=== PATIENT | female | born 1945 | race Caucasian/White ===

== ENCOUNTER 2017-10-17 09:36 | Inpatient (IN) | payer MEDICARE ==
[2017-10-17] VITALS (13 sets, daily range): BP systolic 119–171; BP diastolic 42–87; BMI 30.1
[~2017-10-17] VITALS: Ht 165.1 cm; Wt 85.6 kg
[2017-10-17] MEDS ORDERED: KLONOPIN0.5 MG PO (09:39)
[2017-10-17] MEDS ORDERED: LOSARTAN POTASS25 MG PO (09:39)
[2017-10-17 10:04] LABS: BASOPHILS 0.1 % (0-2); EOSINOPHILS 0.7 % (0-7); HEMATOCRIT 33.5 % (36.0-48.0); HEMOGLOBIN 10.9 g/dL (12-16); IMMATURE GRANULOCYTES 0.1 % (0-5); LYMPHOCYTES 21.8 % (15-50); MCH 30.5 pg (26.0-34.0); MCHC 32.5 g/dL (31.0-37.0); MCV 93.8 fL (80.0-100.0); MEAN PLATELET VOLUME 12.6 fL (7.4-10.4); MONOCYTES 6.3 % (2-11); PLATELET COUNT 174 10x3/uL (130-400); RBC 3.57 10x6/uL (4.00-5.40); RDW 12.6 % (11.5-14.5); WBC 8.5 10x3/uL (4.8-10.8)
[2017-10-17 10:38] LABS: ALBUMIN 3.4 g/dL (3.4-5.0); ALKALINE PHOSPHATASE 63 U/L (46-116); ALT (SGPT) 24 U/L (10-68); BILIRUBIN - TOTAL 0.24 mg/dL (0.2-1.3); CALC OSMOLALITY 295 mosm/kg (275-300); CALCIUM 9.1 mg/dL (8.5-10.1); CARBON DIOXIDE 29.4 mmol/L (21.0-32.0); CHLORIDE - SERUM 109 mmol/L (98-107); CREATININE - SERUM 0.7 mg/dL (0.6-1.3); GLUCOSE 132 mg/dL (74-106); POTASSIUM - SERUM 4.2 mmol/L (3.5-5.1); PROTEIN - SERUM 6.2 g/dL (6.4-8.2); SODIUM 142 mmol/L (136-145); UREA NITROGEN 43 mg/dL (7-18); eGFR NON AFRICAN AMERICAN 87 mL/min (90-120)
[2017-10-17 10:46] LABS: PRO BNP 28 pg/mL (0-125); TROPONIN-I < 0.017 ng/mL (0.000-0.060)
[2017-10-17 11:43] LABS: APPEARANCE CLEAR (CLEAR); BACTERIA MODERATE /hpf (NONE SEEN); BILIRUBIN NEGATIVE (NEGATIVE); COLOR YELLOW (YELLOW); EPITHELIAL CELLS 0-5 /hpf (0-5); GLUCOSE NEGATIVE (NEGATIVE); KETONE NEGATIVE (NEGATIVE); MUCUS <1+ /lpf (NONE SEEN); NITRITE NEGATIVE (NEGATIVE); PROTEIN NEGATIVE (NEGATIVE); SPECIFIC GRAVITY 1.015 (1.005-1.020); UROBILINOGEN NORMAL (NORMAL)
[2017-10-17 17:00] LABS: % SATURATION 29 % (15-55); IRON 80 ug/dl (35-150); TOTAL IRON BIND CAPACITY 269 ug/dl (260-445); UNSAT IRON BIND CAPACITY 189 ug/dl (150-375)
[2017-10-17 17:12] LABS: FERRITIN 65 ng/mL (3-244); LDH 154 U/L (81-234)
[2017-10-17 17:56] LABS: BASOPHILS 0.4 % (0-2); EOSINOPHILS 0.6 % (0-7); HEMATOCRIT 29.6 % (36.0-48.0); HEMOGLOBIN 9.5 g/dL (12-16); IMMATURE GRANULOCYTES 0.1 % (0-5); LYMPHOCYTES 30.8 % (15-50); MCHC 32.1 g/dL (31.0-37.0); MCV 93.4 fL (80.0-100.0); MEAN PLATELET VOLUME 13.5 fL (7.4-10.4); MONOCYTES 6.9 % (2-11); NEUTROPHILS 61.2 % (40-80); PLATELET COUNT 162 10x3/uL (130-400); RBC 3.17 10x6/uL (4.00-5.40); RDW 12.7 % (11.5-14.5); WBC 8.4 10x3/uL (4.8-10.8)
[2017-10-18] VITALS (20 sets, daily range): BP systolic 103–164; BP diastolic 39–89; Ht 165.1 cm; Wt 85.6 kg
[2017-10-18 04:27] LABS: BASOPHILS 0.3 % (0-2); EOSINOPHILS 2.2 % (0-7); HEMATOCRIT 29.1 % (36.0-48.0); HEMOGLOBIN 9.6 g/dL (12-16); IMMATURE GRANULOCYTES 0.1 % (0-5); LYMPHOCYTES 41.5 % (15-50); MCV 93.9 fL (80.0-100.0); MEAN PLATELET VOLUME 13.6 fL (7.4-10.4); MONOCYTES 6.9 % (2-11); PLATELET COUNT 164 10x3/uL (130-400); RDW 12.7 % (11.5-14.5); WBC 7.4 10x3/uL (4.8-10.8)
[2017-10-18 04:59] LABS: CALC OSMOLALITY 288 mosm/kg (275-300); CALCIUM 8.4 mg/dL (8.5-10.1); CARBON DIOXIDE 28.5 mmol/L (21.0-32.0); CHLORIDE - SERUM 112 mmol/L (98-107); CREATININE - SERUM 0.6 mg/dL (0.6-1.3); GLUCOSE 93 mg/dL (74-106); POTASSIUM - SERUM 3.7 mmol/L (3.5-5.1); SODIUM 144 mmol/L (136-145); eGFR NON AFRICAN AMERICAN > 90 mL/min (90-120)
[2017-10-18 05:07] LABS: UREA NITROGEN 17 mg/dL (7-18)
[2017-10-19] VITALS (13 sets, daily range): BP systolic 107–152; BP diastolic 42–66
[2017-10-19 04:23] LABS: BASOPHILS 0.3 % (0-2); EOSINOPHILS 3.1 % (0-7); HEMATOCRIT 26.8 % (36.0-48.0); HEMOGLOBIN 8.7 g/dL (12-16); IMMATURE GRANULOCYTES 0.2 % (0-5); LYMPHOCYTES 43.9 % (15-50); MCH 30.4 pg (26.0-34.0); MCHC 32.5 g/dL (31.0-37.0); MCV 93.7 fL (80.0-100.0); MEAN PLATELET VOLUME 13.3 fL (7.4-10.4); MONOCYTES 7.9 % (2-11); NEUTROPHILS 44.6 % (40-80); PLATELET COUNT 162 10x3/uL (130-400); RBC 2.86 10x6/uL (4.00-5.40); RDW 12.8 % (11.5-14.5); WBC 6.2 10x3/uL (4.8-10.8)
[2017-10-19 04:40] LABS: CALC OSMOLALITY 289 mosm/kg (275-300); CALCIUM 8.3 mg/dL (8.5-10.1); CARBON DIOXIDE 28.5 mmol/L (21.0-32.0); CHLORIDE - SERUM 112 mmol/L (98-107); CREATININE - SERUM 0.6 mg/dL (0.6-1.3); GLUCOSE 96 mg/dL (74-106); POTASSIUM - SERUM 3.8 mmol/L (3.5-5.1); SODIUM 146 mmol/L (136-145); eGFR NON AFRICAN AMERICAN > 90 mL/min (90-120)
[2017-10-19 04:41] LABS: UREA NITROGEN 11 mg/dL (7-18)
[2017-10-19 04:44] LABS: HELICOBACTER PYLORI IGG NEGATIVE (NEGATIVE)
[2017-10-20 04:00] VITALS: BP 150/62
[2017-10-20 05:09] LABS: BASOPHILS 0.5 % (0-2); EOSINOPHILS 5.3 % (0-7); HEMATOCRIT 28.1 % (36.0-48.0); HEMOGLOBIN 9.2 g/dL (12-16); IMMATURE GRANULOCYTES 0.2 % (0-5); MCH 30.6 pg (26.0-34.0); MCHC 32.7 g/dL (31.0-37.0); MCV 93.4 fL (80.0-100.0); MEAN PLATELET VOLUME 13.9 fL (7.4-10.4); MONOCYTES 7.3 % (2-11); NEUTROPHILS 45.7 % (40-80); PLATELET COUNT 160 10x3/uL (130-400); RBC 3.01 10x6/uL (4.00-5.40); WBC 5.9 10x3/uL (4.8-10.8)
[2017-10-20 05:40] LABS: CALC OSMOLALITY 291 mosm/kg (275-300); CALCIUM 8.8 mg/dL (8.5-10.1); CARBON DIOXIDE 26.6 mmol/L (21.0-32.0); CHLORIDE - SERUM 111 mmol/L (98-107); CREATININE - SERUM 0.5 mg/dL (0.6-1.3); GLUCOSE 104 mg/dL (74-106); POTASSIUM - SERUM 3.4 mmol/L (3.5-5.1); SODIUM 148 mmol/L (136-145); UREA NITROGEN 7 mg/dL (7-18); eGFR NON AFRICAN AMERICAN > 90 mL/min (90-120)
[2017-10-20 09:35] VITALS: BP 143/60
[2017-10-20] MEDS ORDERED: LEVAQUIN500 MG PO (09:49)
[2017-10-20] MEDS ORDERED: CARAFATE1 G PO (09:49)
[2017-10-20] MEDS ORDERED: PROTONIX40 MG PO (09:49)
== END 2017-10-20 10:45 | disposition home or self-care (01) | DRG 378 ==
LOC: D.ER 09:36 → D.EDHOLD 13:40 → D.MS 13:40 → D.ICU 13:40 → D.MS 10-19 17:57
PROVIDERS: Emergency Medicine; Internal Medicine Gastroenterology; Internal Medicine Nephrology
PROC: 0DJ08ZZ Inspection of Upper Intestinal Tract, Via Natural or Artificial Opening Endoscopic (ICD-10-PCS; principal; 2017-10-18 16:45)
DX: K25.4 Chronic or unspecified gastric ulcer with hemorrhage (principal); D62 Acute posthemorrhagic anemia; N39.0 Urinary tract infection, site not specified; R55 Syncope and collapse; K44.9 Diaphragmatic hernia without obstruction or gangrene; I10 Essential (primary) hypertension; F32.9 Major depressive disorder, single episode, unspecified; F41.9 Anxiety disorder, unspecified

== ENCOUNTER 2017-11-26 14:01 | Emergency (ER) | payer MEDICARE ==
[~2017-11-26] VITALS: Ht 165.1 cm; Wt 80.5 kg
[~2017-11-26 14:01] MED LIST: CARAFATE1 G PO; KLONOPIN0.5 MG PO; LEVAQUIN500 MG PO; LOSARTAN POTASS25 MG PO; PROTONIX40 MG PO
[2017-11-26 14:04] VITALS: Ht 165.1 cm; Wt 80.5 kg
[2017-11-26] MEDS ORDERED: PROTONIX40 MG PO (14:10)
[2017-11-26] MEDS ORDERED: ZANAFLEX2 M1 PO (14:10)
[2017-11-26] MEDS ORDERED: ATIVAN1 MG PO (14:11)
[2017-11-26] MEDS ORDERED: LEXAPRO20 MG PO (14:11)
[2017-11-26] MEDS ORDERED: FERROUS SULFAT325 MG PO (14:12)
[2017-11-26] MEDS ORDERED: RELORA (14:13)
[2017-11-26] MEDS ORDERED: [UNRECOGNIZED DRUG - OTHER] (14:14)
[2017-11-26] MEDS ORDERED: SILYMARIN (14:14)
[2017-11-26 15:10] LABS: APTT 26.8 SECONDS (22.8-39.4); INR 1.06 (0.85-1.17); PROTIME 13.5 SECONDS (11.6-15.0)
[2017-11-26 15:18] LABS: ALBUMIN 3.1 g/dL (3.4-5.0); ANION GAP 10.2 mmol/L (8-16); BILIRUBIN - TOTAL 0.49 mg/dL (0.2-1.3); CALCIUM 8.4 mg/dL (8.5-10.1); CARBON DIOXIDE 28.9 mmol/L (21.0-32.0); CREATININE - SERUM 1.1 mg/dL (0.6-1.3); POTASSIUM - SERUM 4.1 mmol/L (3.5-5.1); PROTEIN - SERUM 5.9 g/dL (6.4-8.2)
[2017-11-26 16:13] VITALS: BP 127/48
== END 2017-11-26 16:14 | disposition home or self-care (01) ==
LOC: D.ER 14:01
PROVIDERS: Emergency Medicine
DX: R55 Syncope and collapse (principal); I95.2 Hypotension due to drugs; I10 Essential (primary) hypertension; Z85.3 Personal history of malignant neoplasm of breast; Z90.13 Acquired absence of bilateral breasts and nipples

== ENCOUNTER 2017-12-09 16:20 | Inpatient (IN) | payer MEDICARE ==
[~2017-12-09] VITALS: Ht 165.1 cm; Wt 65.8 kg
[2017-12-09] VITALS (7 sets, daily range): BP systolic 103–137; BP diastolic 50–72
--- NOTE | ~2017-12-09 | OP ---
PATIENT NAME: CHIKA CUENCA MEDICAL RECORD: [id number] :47 LOCATION:[id number] ADMISSION DATE:12/09/17 SURGEON: ANNE ALVAREZ MD DATE OF OPERATION: 12/14/2017 PREOPERATIVE DIAGNOSES: 1. Biliary dyskinesia. 2. Headaches. POSTOPERATIVE DIAGNOSES: 1. Biliary dyskinesia. 2. Headaches. PROCEDURE: Laparoscopic cholecystectomy. SURGEON: Anne Alvarez MD REPORT OF PROCEDURE: The patient's abdomen was prepped and draped in sterile fashion. A cutdown was made on the superior aspect of the umbilicus. The 0 Vicryls were placed in the fascia bilaterally and the fascia was incised with a 15-blade. I then bluntly entered the peritoneal cavity and placed a 12-mm Erickson port. Under direct visualization, a 5-mm trocar was placed in the epigastrium and 2 more 5-mm trocars were placed in the right subcostal region. The gallbladder was grasped and elevated. There were no adhesions present, but there is a lot of edema around the gallbladder wall. The cystic artery and cystic duct were then dissected free and these were clipped proximally and distally and ligated in standard fashion. The gallbladder was then taken off the liver bed using electrocautery and placed in the right upper quadrant. Any bleeding from the liver bed was then treated with electrocautery. At this point, the ports and insufflation were then removed and the gallbladder was taken out through the umbilicus. The umbilical fascia was closed with interrupted 0 Vicryls times 3. The wounds were then irrigated out with normal saline, infused with 10 mL of 0.25% Marcaine with epinephrine. The skin incisions were all closed with subcutaneous 5-0 Monocryl and dressed appropriately. COMPLICATIONS: None. CONDITION: Stable. ANESTHESIA: General endotracheal and local. BLOOD LOSS: 30 mL. TRANSINT:[id number] Voice Confirmation ID: [id number] DOCUMENT ID: [id number] ANNE ALVAREZ MD CC: [id number] DICTATION DATE: 12/14/17 1505 NAIL GALVANIZER: 12/14/17 1513 ADM IN [facility] [address] [place] [address]
--- NOTE | ~2017-12-09 | EC ---
PATIENT:CHIKA CUENCA DATE OF SERVICE: 12/09/17 SEX: F MEDICAL RECORD: [id number] DATE OF : 47 LOCATION:[facility] AGE OF PATIENT: 72 ADMISSION DATE: 12/09/17 REFERRING PHYSICIAN: INTERPRETING PHYSICIAN: MI PONCE MD ECHOCARDIOGRAM REPORT ECHO CHARGES 4 ECHO COMPLETE Date: 12/10/17 CLINICAL DIAGNOSIS: TIA VS CVA ECHOCARDIOGRAPHIC MEASUREMENTS (adult normal given) AC root (d.<3.7cm) 2.9 cm LV Septum d (<1.2 cm> 1.3 cm Valve Excursion 1.7 cm LV Septum (systole) 1.6 cm Left Atria (s.<4.0cm> 3.4 cm LVPW d(<1.2cm) 1.0 cm RV (d.<2.3cm) 2.3 cm LVPW (sytole) 0.9 cm LV diastole(<5.6CM) 4.4 cm MV E-F(>70mm/sec) cm LV systole 3.4 cm LVOT Diameter 1.7 cm MV exc.(>10mm) cm Est.ejection fraction (50-75%) % DOPPLER: LVIT cm/sec A 86 cm/sec E 64 cm/sec LA cm/sec RVSP 24.1 mmHg LVOT 125 cm/sec AOP1/2T m/s Asc. Ao 164 cm/sec RVOT 93 cm/sec RA cm/sec PA 90 cm/sec AV Gradient Peak 10.7 mmHg AV Mean 5.8 mmHg AV Area 2.1 cm MV Gradient Peak 7.3 mmHg MV Mean 3.7 mmHg MV Area cm COMMENTS: Asphalt Spreader: Wesley CAZARES Track Mechanic: 3 Dr. [place] TAPE# PACS Pericardial Effusion N DATE OF SERVICE: Adequate 2D, color flow, spectral Doppler, and M-mode. Borderline LVH. LV internal dimensions are normal, wall motion normal. EF equal to 55%. Aortic valve is tricuspid. No septation. The left atrium is normal at 3.4 cm. Mitral valve shows no prolapse. Mild MR. Right-sided chambers are normal. Trace TR. TRANSINT:[id number] Voice Confirmation ID: [id number] DOCUMENT ID: [id number] ECHOCARDIOGRAM REPORT [id number] CUENCACHIKA Silver [place] PONCE MD at 0843 CC: [id number] DICTATION DATE: 12/11/17912 STORAGE GARAGE MANAGER: 12/11/17 1035 ADM IN [place] [id number] [place] [id number]
[~2017-12-09 16:20] MED LIST changes: +ATIVAN1 MG PO; +FERROUS SULFAT325 MG PO; +LEXAPRO20 MG PO; +RELORA; +SILYMARIN; +ZANAFLEX2 M1 PO; +[UNRECOGNIZED DRUG - OTHER]
[2017-12-09 16:42] LABS: BASOPHILS 0.1 % (0-2); EOSINOPHILS 0.5 % (0-7); HEMATOCRIT 38.2 % (36.0-48.0); HEMOGLOBIN 12.3 g/dL (12-16); IMMATURE GRANULOCYTES 0.3 % (0-5); LYMPHOCYTES 3.1 % (15-50); MCH 29.6 pg (26.0-34.0); MCHC 32.2 g/dL (31.0-37.0); MCV 91.8 fL (80.0-100.0); MEAN PLATELET VOLUME 12.6 fL (7.4-10.4); MONOCYTES 5.4 % (2-11); NEUTROPHILS 90.6 % (40-80); RBC 4.16 10x6/uL (4.00-5.40); RDW 13.5 % (11.5-14.5); WBC 11.6 10x3/uL (4.8-10.8)
[2017-12-09 16:46] LABS: PLATELET COUNT 195 10x3/uL (130-400)
[2017-12-09 16:59] LABS: ALBUMIN 3.4 g/dL (3.4-5.0); ANION GAP 9.9 mmol/L (8-16); BILIRUBIN - TOTAL 0.35 mg/dL (0.2-1.3); CALCIUM 9.4 mg/dL (8.5-10.1); CARBON DIOXIDE 30.1 mmol/L (21.0-32.0); CREATININE - SERUM 0.9 mg/dL (0.6-1.3); INR 1.02 (0.85-1.17); PROTEIN - SERUM 7.2 g/dL (6.4-8.2)
[2017-12-09 17:00] LABS: D-DIMER-QUANTITATIVE 0.68 ug/mLFEU (0.20-0.54)
[2017-12-09 17:02] LABS: APPEARANCE CLEAR (CLEAR); BILIRUBIN NEGATIVE (NEGATIVE); COLOR YELLOW (YELLOW); GLUCOSE NEGATIVE (NEGATIVE); KETONE NEGATIVE (NEGATIVE); NITRITE NEGATIVE (NEGATIVE); PROTEIN NEGATIVE (NEGATIVE); UROBILINOGEN NORMAL (NORMAL)
[2017-12-09 17:36] LABS: AMYLASE - SERUM 48 U/L (25-115); C-REACTIVE PROTEIN 2.4 mg/dL (0.0-0.9); CKMB 0.6 U/L (0.0-3.6); CREATINE KINASE 23 UL (21-215); LIPASE 555 U/L (73-393); PRO BNP 172 pg/mL (0-125); THYROID STIMULATING HORMONE 1.27 uIU/mL (0.36-3.74)
[2017-12-09 17:38] LABS: TROPONIN-I < 0.017 ng/mL (0.000-0.060)
[2017-12-09] MEDS ORDERED: ACETAMINOPHEN325 MG PO (23:41)
[2017-12-09] MEDS ORDERED: VITAMIN D2000 UNIT PO (23:42)
[2017-12-09] MEDS ORDERED: CENTRUM SILVER1 TA1 PO (23:42)
[2017-12-09] MEDS ORDERED: VITAMIN E1000 UNI1 PO (23:44)
[2017-12-10 01:10] VITALS: BP 127/54; BMI 24.1
[2017-12-10 04:00] VITALS: BP 119/53
[2017-12-10 07:48] LABS: ALBUMIN 2.7 g/dL (3.4-5.0); ANION GAP 9.6 mmol/L (8-16); BILIRUBIN - DIRECT 0.18 mg/dL (0.00-0.30); BILIRUBIN - INDIRECT 0.29 mg/dL (0.00-1.00); BILIRUBIN - TOTAL 0.47 mg/dL (0.2-1.3); CALCIUM 8.8 mg/dL (8.5-10.1); CARBON DIOXIDE 28.5 mmol/L (21.0-32.0); CREATININE - SERUM 1.1 mg/dL (0.6-1.3); POTASSIUM - SERUM 4.1 mmol/L (3.5-5.1); PROTEIN - SERUM 6.3 g/dL (6.4-8.2)
[2017-12-10 09:59] LABS: BASOPHILS 0.1 % (0-2); EOSINOPHILS 0.3 % (0-7); HEMATOCRIT 34.4 % (36.0-48.0); HEMOGLOBIN 10.9 g/dL (12-16); IMMATURE GRANULOCYTES 0.2 % (0-5); LYMPHOCYTES 4.6 % (15-50); MCH 29.5 pg (26.0-34.0); MCHC 31.7 g/dL (31.0-37.0); MEAN PLATELET VOLUME 13.1 fL (7.4-10.4); MONOCYTES 7.1 % (2-11); NEUTROPHILS 87.7 % (40-80); PLATELET COUNT 183 10x3/uL (130-400); RDW 13.6 % (11.5-14.5)
[2017-12-10 10:10] VITALS: BP 112/47
[2017-12-10 12:30] LABS: CKMB 0.9 U/L (0.0-3.6); CREATINE KINASE 39 UL (21-215)
[2017-12-10 12:31] LABS: TROPONIN-I < 0.017 ng/mL (0.000-0.060)
[2017-12-10 14:02] LABS: CHOL - HDL RATIO 3.3 ratio (2.3-4.1)
[2017-12-10 18:26] LABS: CKMB 0.6 U/L (0.0-3.6); CREATINE KINASE 27 UL (21-215); TROPONIN-I < 0.017 ng/mL (0.000-0.060)
[2017-12-10 23:30] LABS: CKMB 0.4 U/L (0.0-3.6); CREATINE KINASE 18 UL (21-215)
[2017-12-10 23:32] LABS: TROPONIN-I < 0.017 ng/mL (0.000-0.060)
[2017-12-11 03:51] VITALS: BP 117/55
[2017-12-11 05:20] LABS: BASOPHILS 0.1 % (0-2); EOSINOPHILS 2.4 % (0-7); HEMATOCRIT 31.3 % (36.0-48.0); HEMOGLOBIN 9.8 g/dL (12-16); IMMATURE GRANULOCYTES 0.3 % (0-5); LYMPHOCYTES 11.7 % (15-50); MCH 28.8 pg (26.0-34.0); MCHC 31.3 g/dL (31.0-37.0); MCV 92.1 fL (80.0-100.0); MEAN PLATELET VOLUME 13.1 fL (7.4-10.4); MONOCYTES 9.7 % (2-11); NEUTROPHILS 75.8 % (40-80); PLATELET COUNT 170 10x3/uL (130-400); RDW 13.5 % (11.5-14.5)
[2017-12-11 05:24] LABS: WBC 6.7 10x3/uL (4.8-10.8)
[2017-12-11 05:32] LABS: ALBUMIN 2.3 g/dL (3.4-5.0); ALKALINE PHOSPHATASE 167 U/L (46-116); ALT (SGPT) 111 U/L (10-68); BILIRUBIN - TOTAL 0.32 mg/dL (0.2-1.3); CALCIUM 8.6 mg/dL (8.5-10.1); CARBON DIOXIDE 27.7 mmol/L (21.0-32.0); CHLORIDE - SERUM 104 mmol/L (98-107); GLUCOSE 119 mg/dL (74-106); SODIUM 136 mmol/L (136-145); eGFR NON AFRICAN AMERICAN 87 mL/min (90-120)
[2017-12-11 05:37] LABS: CALC OSMOLALITY 271 mosm/kg (275-300); CREATININE - SERUM 0.7 mg/dL (0.6-1.3); UREA NITROGEN 11 mg/dL (7-18)
[2017-12-11 08:20] VITALS: BP 117/53
[2017-12-11 11:53] VITALS: BP 136/52
[2017-12-11 12:49] VITALS: BMI 24.1
[2017-12-11 16:20] VITALS: BP 113/40
[2017-12-11 22:20] VITALS: BP 119/54
[2017-12-12 06:15] LABS: BASOPHILS 0.4 % (0-2); EOSINOPHILS 4.9 % (0-7); HEMATOCRIT 31.5 % (36.0-48.0); IMMATURE GRANULOCYTES 0.2 % (0-5); LYMPHOCYTES 20.3 % (15-50); MCH 29.4 pg (26.0-34.0); MCHC 31.7 g/dL (31.0-37.0); MCV 92.6 fL (80.0-100.0); MEAN PLATELET VOLUME 13.2 fL (7.4-10.4); NEUTROPHILS 65.2 % (40-80); PLATELET COUNT 179 10x3/uL (130-400); RDW 13.7 % (11.5-14.5)
[2017-12-12 06:19] LABS: WBC 4.7 10x3/uL (4.8-10.8)
[2017-12-12 06:44] LABS: ALBUMIN 2.3 g/dL (3.4-5.0); ALKALINE PHOSPHATASE 158 U/L (46-116); ALT (SGPT) 116 U/L (10-68); CALCIUM 8.4 mg/dL (8.5-10.1); CARBON DIOXIDE 27.1 mmol/L (21.0-32.0); CHLORIDE - SERUM 108 mmol/L (98-107); CREATININE - SERUM 0.7 mg/dL (0.6-1.3); GLUCOSE 112 mg/dL (74-106); POTASSIUM - SERUM 3.9 mmol/L (3.5-5.1); PROTEIN - SERUM 6.2 g/dL (6.4-8.2); SODIUM 143 mmol/L (136-145); eGFR NON AFRICAN AMERICAN 87 mL/min (90-120)
[2017-12-12 07:10] LABS: CALC OSMOLALITY 283 mosm/kg (275-300); UREA NITROGEN 8 mg/dL (7-18)
[2017-12-12 08:03] VITALS: BP 156/74
[2017-12-12 11:59] VITALS: BP 130/56
[2017-12-12 15:34] VITALS: Ht 165.1 cm; Wt 65.8 kg
[2017-12-12 17:24] VITALS: BP 147/60
[2017-12-12 21:31] VITALS: BP 163/68
[2017-12-13 05:13] VITALS: BP 146/54
[2017-12-13 05:41] LABS: BASOPHILS 0.7 % (0-2); EOSINOPHILS 5.2 % (0-7); HEMATOCRIT 31.5 % (36.0-48.0); IMMATURE GRANULOCYTES 0.2 % (0-5); LYMPHOCYTES 28.8 % (15-50); MCH 29.3 pg (26.0-34.0); MCHC 31.7 g/dL (31.0-37.0); MCV 92.4 fL (80.0-100.0); MONOCYTES 11.8 % (2-11); NEUTROPHILS 53.3 % (40-80); PLATELET COUNT 207 10x3/uL (130-400); RBC 3.41 10x6/uL (4.00-5.40); RDW 13.8 % (11.5-14.5); WBC 5.4 10x3/uL (4.8-10.8)
[2017-12-13 06:00] LABS: ALBUMIN 2.2 g/dL (3.4-5.0); ALKALINE PHOSPHATASE 138 U/L (46-116); ALT (SGPT) 91 U/L (10-68); BILIRUBIN - TOTAL 0.22 mg/dL (0.2-1.3); CALC OSMOLALITY 288 mosm/kg (275-300); CALCIUM 8.1 mg/dL (8.5-10.1); CARBON DIOXIDE 28.4 mmol/L (21.0-32.0); CHLORIDE - SERUM 111 mmol/L (98-107); CREATININE - SERUM 0.7 mg/dL (0.6-1.3); GLUCOSE 94 mg/dL (74-106); POTASSIUM - SERUM 3.6 mmol/L (3.5-5.1); SODIUM 146 mmol/L (136-145); UREA NITROGEN 7 mg/dL (7-18); eGFR NON AFRICAN AMERICAN 87 mL/min (90-120)
[2017-12-13 08:20] VITALS: BP 148/73
[2017-12-13 11:51] VITALS: BP 159/72
[2017-12-13 15:52] VITALS: BP 148/65
[2017-12-14 04:22] VITALS: BP 163/64
[2017-12-14 05:24] LABS: BASOPHILS 0.6 % (0-2); EOSINOPHILS 4.9 % (0-7); HEMATOCRIT 31.7 % (36.0-48.0); HEMOGLOBIN 10.3 g/dL (12-16); IMMATURE GRANULOCYTES 0.2 % (0-5); LYMPHOCYTES 33.6 % (15-50); MCH 29.6 pg (26.0-34.0); MCHC 32.5 g/dL (31.0-37.0); MCV 91.1 fL (80.0-100.0); MEAN PLATELET VOLUME 12.9 fL (7.4-10.4); MONOCYTES 10.5 % (2-11); NEUTROPHILS 50.2 % (40-80); PLATELET COUNT 238 10x3/uL (130-400); RBC 3.48 10x6/uL (4.00-5.40); WBC 5.3 10x3/uL (4.8-10.8)
[2017-12-14 05:47] LABS: ALBUMIN 2.2 g/dL (3.4-5.0); ALKALINE PHOSPHATASE 128 U/L (46-116); ALT (SGPT) 71 U/L (10-68); BILIRUBIN - TOTAL 0.19 mg/dL (0.2-1.3); CALC OSMOLALITY 288 mosm/kg (275-300); CALCIUM 8.2 mg/dL (8.5-10.1); CARBON DIOXIDE 28.2 mmol/L (21.0-32.0); CHLORIDE - SERUM 110 mmol/L (98-107); CREATININE - SERUM 0.6 mg/dL (0.6-1.3); GLUCOSE 99 mg/dL (74-106); POTASSIUM - SERUM 3.3 mmol/L (3.5-5.1); SODIUM 146 mmol/L (136-145); UREA NITROGEN 6 mg/dL (7-18); eGFR NON AFRICAN AMERICAN > 90 mL/min (90-120)
[2017-12-14 08:48] VITALS: BP 151/56
[2017-12-14 16:44] VITALS: BP 148/61
[2017-12-14 20:00] VITALS: BP 135/59
[2017-12-15 01:02] VITALS: BP 154/64
[2017-12-15 05:02] VITALS: BP 148/78
[2017-12-15 06:27] LABS: BASOPHILS 0.4 % (0-2); EOSINOPHILS 0.4 % (0-7); HEMATOCRIT 33.5 % (36.0-48.0); HEMOGLOBIN 10.6 g/dL (12-16); IMMATURE GRANULOCYTES 0.4 % (0-5); LYMPHOCYTES 21.8 % (15-50); MCH 29.2 pg (26.0-34.0); MCHC 31.6 g/dL (31.0-37.0); MCV 92.3 fL (80.0-100.0); MEAN PLATELET VOLUME 12.6 fL (7.4-10.4); MONOCYTES 8.1 % (2-11); NEUTROPHILS 68.9 % (40-80); PLATELET COUNT 265 10x3/uL (130-400); RBC 3.63 10x6/uL (4.00-5.40); RDW 14.1 % (11.5-14.5)
[2017-12-15 06:28] LABS: WBC 8.6 10x3/uL (4.8-10.8)
[2017-12-15 06:51] LABS: ALBUMIN 2.4 g/dL (3.4-5.0); ALKALINE PHOSPHATASE 123 U/L (46-116); ALT (SGPT) 80 U/L (10-68); BILIRUBIN - TOTAL 0.14 mg/dL (0.2-1.3); CALC OSMOLALITY 287 mosm/kg (275-300); CALCIUM 8.5 mg/dL (8.5-10.1); CARBON DIOXIDE 29.1 mmol/L (21.0-32.0); CHLORIDE - SERUM 107 mmol/L (98-107); CREATININE - SERUM 0.7 mg/dL (0.6-1.3); GLUCOSE 123 mg/dL (74-106); PROTEIN - SERUM 6.1 g/dL (6.4-8.2); SODIUM 145 mmol/L (136-145); UREA NITROGEN 7 mg/dL (7-18); eGFR NON AFRICAN AMERICAN 87 mL/min (90-120)
[2017-12-15 08:54] VITALS: BP 143/45
[2017-12-15] MEDS ORDERED: HYDROCODON-ACE1 EAC7 PO (10:00)
[2017-12-15] MEDS ORDERED: COLACE100 MG PO (10:24)
[2017-12-15] MEDS ORDERED: PROTONIX40 MG PO (10:25)
[2017-12-15 12:28] VITALS: BP 145/62
== END 2017-12-15 12:30 | disposition home or self-care (01) | DRG 418 ==
LOC: D.ER 16:20 → D.EDHOLD 21:24 → D.MS 21:24
PROVIDERS: Emergency Medicine; Family Medicine; Surgery
PROC: 0FT44ZZ Resection of Gallbladder, Percutaneous Endoscopic Approach (ICD-10-PCS; principal; 2017-12-14 12:00)
DX: K82.8 Other specified diseases of gallbladder (principal); G81.92 Hemiplegia, unspecified affecting left dominant side; G45.9 Transient cerebral ischemic attack, unspecified; I10 Essential (primary) hypertension; R51 Headache; G83.84 Todd's paralysis (postepileptic); K59.00 Constipation, unspecified; E16.2 Hypoglycemia, unspecified; F41.8 Other specified anxiety disorders; Z85.3 Personal history of malignant neoplasm of breast

== ENCOUNTER → 2017-12-22 13:13 | Outpatient (CLI) | payer MEDICARE ==
[2017-12-12 15:34] VITALS: BMI 24.1
[~2017-12-22 13:13] MED LIST changes: +ACETAMINOPHEN325 MG PO; +CENTRUM SILVER1 TA1 PO; +COLACE100 MG PO; +HYDROCODON-ACE1 EAC7 PO; +VITAMIN D2000 UNIT PO; +VITAMIN E1000 UNI1 PO
== END | disposition home or self-care (01) ==
LOC: D.CT 13:13
DX: R51 Headache (principal)

== ENCOUNTER → 2020-08-27 12:25 | Outpatient (CLI) | payer MEDICARE ==
[2017-12-12 15:34] VITALS: BMI 24.1
== END | disposition home or self-care (01) ==
LOC: D.RAD 12:25
PROVIDERS: ATTEND Internal Medicine Gastroenterology
DX: K59.00 Constipation, unspecified (principal); R10.84 Generalized abdominal pain